=== PATIENT | female | born 1970 | race Caucasian/White ===

== ENCOUNTER 2017-01-31 07:54 | Day surgery (SDC) | payer MEDICARE ==
--- NOTE | ~2017-01-31 | OP ---
Record Of Operation [facility] [address] [place] [address] NAME: NGA BELTRAN : 74 STATUS : REG [facility]#: [id number] AGE: 46 ADM/REG DATE : 01/31/17 MR#: [id number] REPORT SERV DATE: 01/31/17 DICTATED BY: MARK SINGH DATE: 01/31/17 REPORT STATUS : Draft TRANSCRIBED BY: MARIBEL DATE: 01/31/17 DATE OF PROCEDURE: PROCEDURE PERFORMED: Removal of old PEG and replacement with a SMOOTH-coyle PEG tube. INDICATION FOR THE PROCEDURE: Ms. Beltran is a 46-year-old lady who has severe physical disability with difficulty swallowing, has a PEG tube which is not functioning, and request was made for change of PEG tube. PREOPERATIVE DIAGNOSIS: As above. POSTOPERATIVE DIAGNOSIS/PROCEDURE: The old PEG tube which was not functioning was pulled out and then through the same opening a 3 cm SMOOTH-Coyle PEG tube was replaced without any difficulty. Post procedure, Gastrografin was done which showed the PEG tube to be in good position internally. IMPRESSION: Findings as mentioned, PEG tube replaced. RECOMMENDATIONS: The patient will be discharged and will follow up as needed. ROMAN/MARIBEL Tyrell Singh M.D. / [id number] CC: [address]
[~2017-01-31 07:54] MED LIST: ADVAIR115P INH; ANTIBIOTIC EAR OT; DSS PO; FISH OIL1000 M1 PO; FISH-EPA1000 MG PO; FLEX PO; GYNODIOL2 MG PO; IBU-200200 MG PO; LIDOCAINE INH; LORAZEPAM 2 MG BUC; LORAZEPAM 2 MG PO; MAGIC MOUTHWASH PO; MIRALAXPKT PO; MORPHINE BUC; MULTI PO; MULTIPLE VIT PO; PR12.5 PO; PROAIR HFA INH; PROVENTSOL INH; RITALIN20 PO; SENTAB PO; SINGULAIR1 PO; SODIUM BICARB INH; TESS PO; VALIUM10 MG PO; ZOFRANODT8 SL
== END 2017-01-31 23:59 | disposition home or self-care (01) ==
LOC: DMU 07:54
PROVIDERS: Internal Medicine Gastroenterology
PROC: 0D20XUZ Change Feeding Device in Upper Intestinal Tract, External Approach (ICD-10-PCS; principal; 2017-01-31 09:30)
DX: T85.518A Breakdown (mechanical) of other gastrointestinal prosthetic devices, implants and grafts, initial encounter (principal)
CPT/HCPCS: 49465